=== PATIENT | male | born 1960 | race Asian ===

== ENCOUNTER 2019-11-18 12:47 | Outpatient (RCR) | payer OTHER, SELFPAY | END 2020-02-16 23:59 | disposition home or self-care (01) | LOC: ANHDMC 12:47 | PROVIDERS: PCP Family Medicine; Visit Provider Family Medicine | DX: E11.9 Type 2 diabetes mellitus without complications (principal); Z71.89 Other specified counseling | CPT/HCPCS: G0108 ==

== ENCOUNTER → 2022-03-15 13:44 | Outpatient (CLI) | payer OTHER, SELFPAY ==
--- NOTE | ~2022-03-15 | XR_ITS ---
EXAMINATION:XR cervical spine min 6V DATE: 03/15/2022 14:04 INDICATION: Neck pain TECHNIQUE: AP, lateral, bilateral oblique, lateral swimmers and odontoid views of the cervical spine are provided. COMPARISON: None FINDINGS: Alignment is normal. The odontoid is intact. No fracture is identified. The vertebral body heights are maintained. There is severe loss of intervertebral disc space height throughout the cervi errol spine. There appears to be severe neuroforaminal stenosis on the right at C4-5, C6-7, and C7-T1. Degenerative osteophytes project from the anterior endplates of multiple vertebral bodies. There is s evere multilevel facet and uncovertebral joint osteoarthritis Prevertebral soft tissues are normal. IMPRESSION: 1. Severe cervical spondylosis. Reviewed, dictated and finalized at location B.
== END ==
PROVIDERS: PCP Family Medicine; Visit Provider Chiropractor
DX: R20.0 Anesthesia of skin (principal); M47.812 Spondylosis without myelopathy or radiculopathy, cervical region
CPT/HCPCS: 72052

== ENCOUNTER → 2022-03-21 13:12 | Outpatient (CLI) | payer OTHER, SELFPAY ==
--- NOTE | ~2022-03-21 | XR_ITS ---
XR shoulder LT min 2V DATE: 03/21/2022 13:30 INDICATION: Left shoulder pain after falling on left arm TECHNIQUE: 4 views COMPARISON: None FINDINGS: No fracture or dislocation, periosteal reaction or bone destruction or abnormal soft tissue calcification of the left shoulder. Degenerative disc disease and uncovertebral joint spurring in the included mid and lower cervical spi ne. IMPRESSION: Negative left shoulder Reviewed, dictated and finalized at location A. IMPRESSION: Negative left shoulder
== END ==
PROVIDERS: PCP Family Medicine; Visit Provider Chiropractor
DX: S49.92XA Unspecified injury of left shoulder and upper arm, initial encounter (principal)
CPT/HCPCS: 73030